=== PATIENT | male | born 1975 | race Caucasian/White ===

== ENCOUNTER → 2020-11-18 | Outpatient (REF) ==
--- NOTE | 2020-11-18 13:21 | REP ---
INDICATION: INJURY. COMPARISON: None. TECHNIQUE: Four views FINDINGS: The bones appear somewhat demineralized. Mild degenerative changes seen throughout the midfoot. The distal portion of a tibial intramedullary mirza is identified with 3 fixing screws. There is no evidence of an acute fracture. IMPRESSION: Chronic changes as described above. 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 <Electronically signed by Ho Gregorio > 11/18/20 [id number]
--- NOTE | 2020-11-18 13:28 | REP ---
INDICATION: INJURY. COMPARISON: None. TECHNIQUE: AP and lateral views bilateral FINDINGS: Left tibia fibula: There has been previous ORIF. A tibial intramedullary mirza is identified with 1 affixing screw proximally and 3 affixing screws distally. The previous tibial fracture has healed. There are healed fibular fractures as well. There as evidence of an incompletely united medial malleolar fracture. Right tibia fibula: There has been previous ORIF with an intramedullary tibial mirza fixed distally by 2 affixing screws and proximally by 1 affixing screw. Two additional screws are seen affixing an old medial malleolar fracture. There is a well demarcated lucency seen in the distal 1/3 of the tibial diaphysis. Multiple surgical clips are seen in that region medially. There is an old healed distal fibular fracture and a nonunited proximal fibular shaft defect which appear surgical. Its margins are smooth and transverse. IMPRESSION: 1. Bilateral ORIF as described above. 2. Evidence of incompletely united are nonunited right distal tibial fracture and probable surgical defect in the proximal fibula as described above. 3. Other findings bilaterally as described above. 4. I will reiterate that I have no priors for comparison. <Electronically signed by Ho Gregorio > 11/18/20 [id number]
== END ==
LOC: M PLAIMG 12:22
PROVIDERS: ATTEND Internal Medicine
DX: Z00.00 Encounter for general adult medical examination without abnormal findings (principal)

== ENCOUNTER → 2023-11-08 | Outpatient (REF) | LOC: M PLAIMG 10:33 | PROVIDERS: ATTEND Internal Medicine | DX: M41.34 Thoracogenic scoliosis, thoracic region (principal); M54.50 Low back pain, unspecified ==

== ENCOUNTER → 2024-10-30 | Outpatient (REF) | LOC: M PLAIMG 09:51 | PROVIDERS: ATTEND Internal Medicine | DX: R52 Pain, unspecified (principal) ==